=== PATIENT | female | born 1970 | race Caucasian/White ===

== ENCOUNTER → 2024-03-26 15:37 | Outpatient (REF) | payer OTHER, SELFPAY | LOC: HWWDC 15:37 | PROVIDERS: ATTENDING PHYSICIAN Nurse Practitioner Women's Health; FAMILY PHYSICIAN Family Medicine | DX: Z12.31 Encounter for screening mammogram for malignant neoplasm of breast (principal) | CPT/HCPCS: 77063; 77067 ==

== ENCOUNTER → 2025-04-05 13:51 | Outpatient (REF) | payer OTHER, SELFPAY | LOC: HWWDC 13:51 | PROVIDERS: ATTENDING PHYSICIAN Nurse Practitioner Women's Health; FAMILY PHYSICIAN Family Medicine | DX: Z12.31 Encounter for screening mammogram for malignant neoplasm of breast (principal) | CPT/HCPCS: 77063; 77067 ==